=== PATIENT | female | born 1990 | race Two or more races ===

== ENCOUNTER 2020-06-18 23:47 | Emergency (ER) | payer OTHER | END 2020-06-19 06:10 | disposition home or self-care (01) | LOC: ER1 23:47 | DX: S80.02XA Contusion of left knee, initial encounter (principal); F17.200 Nicotine dependence, unspecified, uncomplicated; V49.40XA Driver injured in collision with unspecified motor vehicles in traffic accident, initial encounter; Y92.410 Unspecified street and highway as the place of occurrence of the external cause | CPT/HCPCS: 73562; 99283 ==